=== PATIENT | female | born 1995 | race Two or more races ===

== ENCOUNTER 2016-11-13 12:44 | Emergency (ER) | payer BC ==
[2016-11-13] MEDS ORDERED: Levalbuterol 1.25MG/0.5ML NEB INH ONE (17:00)
[2016-11-13 17:51] LABS: Hematocrit 39 % (35-47); Hemoglobin 13.5 g/dl (12.0-16.0); Mean Corpuscular HGB Conc 34 g/dl (31-36); Mean Corpuscular Hemoglobin 31 pg (27-31); Mean Corpuscular Volume 91 fL (80-97); Mean Platelet Volume 6 um3 (7.4-10.4); Red Blood Count 4.32 10^6/ul (4.0-5.4); Red Cell Distribution Width 12 % (10.5-15); White Blood Count 3.5 10^3/ul (3.5-10.8)
--- NOTE | 2016-11-13 17:51 | ED ---
HPI Cardiac - HPI Summary HPI Summary: Pt here w/ URI sx x 1 week (last Tuesday). Started as nasal congestion, rhinorrhea, otalgia for a few days. These sx have resolved but she since developed cough w/ sensation of shortness of breath - feels like she can't get a full deep breath and when she tries, she starts coughing. Went to [place] on Tuesday when she just had URI sx (no cough) - dx'd w/ viral URI and d/c'd w/ comfort care. Developed cough, pulm sx as previously mentioned and fever - 103F at highest - a few days later so went to [place] again - CXR showed Rt middle lobe infiltrate so she was started on zithromax (has had 2 days of treatment thus far - no anbx yet today). Pt reports no further fever after starting zithromax but has been having ongoing coughing. She has asthma and uses albuterol once a month which quickly controls sx. Takes anti-histamine throughout the month as well. Eczema. She's here today for concerns of blood speckled sputum last night which was worse this morning. No judi bloody clots w / coughing. No h/o trauma, hormone therapy, smoking, travel, clotting, cancer. She had a positive [place] test upon entrance eval to [place] w/ neg CXR - this was most likely + 2ndry to being vaccinated as she was a resident of [place]. Was completed obligatory isoniazid tx and no issues since. Had an albuterol neb tx earlier today which helped. - History of Current Complaint Hx Obtained From: Patient, Family/Well Puller Head - mom Pain Intensity: 2 <Leatha Garcia - Last Filed: 11/13/16 17:35> <Shannon Lechuga - Last Filed: 11/14/16 03:46> - History of Current Complaint Chief Complaint: EDGeneral Stated Complaint: WORSENING PNEUMO, WITH HEMOPTYSIS Time Seen by Provider: 11/13/16 16:28 - Allergy/Home Medications Allergies/Adverse Reactions: Allergies Allergy/AdvReac Type Severity Reaction Status Date / Time No Known Allergies Allergy Verified 11/13/16 12:55 PMH/Surg Hx/FS Hx/Imm Hx Previously Healthy: Yes Endocrine/Hematology History: Denies: Hx Anticoagulant Therapy, Hx Blood Disorders, Hx Unexplained Bleeding , Hx Coagulopothy Respiratory History: Reports: Hx Asthma, Hx Seasonal Allergies, Other Respiratory Problems/Disorders - eczema Infectious Disease History: No Infectious Disease History: Denies: Hx Tuberculosis - + PPD d/t immunization in [place] - tx w/ Isoniazid completed, Traveled Outside the [place] in Last 30 Days - Family History Known Family History: Positive: None - Social History Occupation: Student Alcohol Use: None Hx Substance Use: No Substance Use Type: Reports: None Hx Tobacco Use: No Smoking Status (MU): Never Smoked Tobacco <Leatha Garcia - Last Filed: 11/13/16 17:35> Review of Systems Constitutional: Other - see HPI Eyes: Negative Negative: Drainage, Erythema ENT: Other - see HPI Cardiovascular: Negative Negative: Palpitations, Chest Pain Respiratory: Other - see HPI Gastrointestinal: Negative Negative: Abdominal Pain, Vomiting, Diarrhea, Nausea Positive: no symptoms reported Musculoskeletal: Negative Skin: Negative Neurological: Negative Psychological: Normal All Other Systems Reviewed And Are Negative: Yes <Leatha Garcia - Last Filed: 11/13/16 17:35> Physical Exam Triage Information Reviewed: Yes Vital Signs On Initial Exam: Initial Vitals Temp Pulse Resp BP Pulse Ox 98.2 F 67 20 104/67 98 11/13/16 12:50 11/13/16 12:50 11/13/16 12:50 11/13/16 12:50 11/13/16 12:50 Vital Signs Reviewed: Yes Appearance: Positive: Well-Nourished - pt presents w/ soft voice and wearing mask - when she tries to exert her voice, she has coughing at times; speaking in full sentences; mom is present w/ her and also speaks w/ soft voice Skin: Positive: Warm, Dry - dry flaking erythematous skin over superior palpebrae B/L Head/Face: Positive: Normal Head/Face Inspection - Sinuses NTTP Eyes: Positive: EOMI, Conjunctiva Clear. Negative: Conjunctiva Inflammed, Discharge ENT: Positive: Hearing grossly normal, Pharyngeal erythema - cobblestoning, Nasal congestion - boggy turbinates, TMs normal. Negative: Nasal drainage, Tonsillar swelling, Tonsillar exudate, Trismus, Muffled/hoarse voice Neck: Positive: Supple, Nontender, No Lymphadenopathy Respiratory/Lung Sounds: Positive: Clear to Auscultation, Breath Sounds Present , Other - pt starts coughing if breath is too deep - dry. Negative: Rales, Rhonchi, Stridor, Tracheal Deviation, Wheezes, Unable to speak in full sentences , Fatigue Cardiovascular: Positive: Normal, RRR, S1, S2. Negative: Murmur, Rub, Leg Edema Left, Leg Edema Right - (-) Khadijah's sign B/L Abdomen Description: Positive: Nontender, No Organomegaly, Guarding - reports she's ticklish - no pain Bowel Sounds: Positive: Present Musculoskeletal: Positive: Normal, Strength/ROM Intact Neurological: Positive: Normal, Sensory/Motor Intact, Alert, Oriented to Person Place, Time, CN Intact II-III Psychiatric: Positive: Normal - [place] Coma Scale Coma Scale Total: 15 <Leatha Garcia - Last Filed: 11/13/16 17:35> Vital Signs On Initial Exam: Initial Vitals Temp Pulse Resp BP Pulse Ox 98.2 F 67 20 104/67 98 11/13/16 12:50 11/13/16 12:50 11/13/16 12:50 11/13/16 12:50 11/13/16 12:50 <Shannon Lechuga - Last Filed: 11/14/16 03:46> Diagnostics - Vital Signs Vital Signs Temp Pulse Resp BP Pulse Ox 11/13/16 14:09 98.2 F 60 18 102/60 97 11/13/16 12:50 98.2 F 67 20 104/67 98 <Leatha Garcia - Last Filed: 11/13/16 17:35> - Vital Signs Vital Signs Temp Pulse Resp BP Pulse Ox 11/13/16 20:23 98.1 F 96 16 89/59 94 11/13/16 17:37 76 16 99 11/13/16 14:09 98.2 F 60 18 102/60 97 11/13/16 12:50 98.2 F 67 20 104/67 98 - Laboratory Lab Results: Lab Results 11/13/16 11/13/16 11/13/16 Range/Units 17:40 17:40 17:40 WBC 3.5 (3.5-10.8) 10^3/ul RBC 4.32 (4.0-5.4) 10^6/ul Hgb 13.5 (12.0-16.0) g/dl Hct 39 (35-47) % MCV 91 (80-97) fL MCH 31 (27-31) pg MCHC 34 (31-36) g/dl RDW 12 (10.5-15) % Plt Count 237 (150-450) 10^3/ul MPV 6 L (7.4-10.4) um3 Neut % (Auto) 33.4 L (38-83) % Lymph % (Auto) 59.1 H (25-47) % [place] % (Auto) 5.5 (1-9) % Eos % (Auto) 1.5 (0-6) % Baso % (Auto) 0.5 (0-2) % Absolute Neuts (auto) 1.2 L (1.5-7.7) 10^3/ul Absolute Lymphs (auto) 2.1 (1.0-4.8) 10^3/ul Absolute Monos (auto) 0.2 (0-0.8) 10^3/ul Absolute Eos (auto) 0.1 (0-0.6) 10^3/ul Absolute Basos (auto) 0 (0-0.2) 10^3/ul Absolute Nucleated RBC 0 10^3/ul Nucleated RBC % 0 INR (Anticoag Therapy) 0.99 (0.89-1.11) APTT 34.2 (26.0-36.3) seconds D-Dimer, Quantitative 271 H (Less Than 230) ng/mL Sodium 136 (133-145) mmol/L Potassium 3.4 L (3.5-5.0) mmol/L Chloride 100 L (101-111) mmol/L Carbon Dioxide 27 (22-32) mmol/L Anion Gap 9 (2-11) mmol/L BUN 9 (6-24) mg/dL Creatinine 0.64 (0.51-0.95) mg/dL Est GFR ( Amer) 150.6 (>60) Est GFR (Non-Af Amer) 117.1 (>60) BUN/Creatinine Ratio 14.1 (8-20) Glucose 127 H (70-100) mg/dL Calcium 9.5 (8.6-10.3) mg/dL Total Bilirubin 0.50 (0.2-1.0) mg/dL AST 26 (13-39) U/L ALT 14 (7-52) U/L Alkaline Phosphatase 43 (34-104) U/L Total Protein 8.0 (6.4-8.9) g/dL Albumin 4.4 (3.2-5.2) g/dL Globulin 3.6 (2-4) g/dL Albumin/Globulin Ratio 1.2 (1-3) Influenza A (Rapid) (Negative) Influenza B (Rapid) (Negative) 11/13/16 Range/Units 17:50 WBC (3.5-10.8) 10^3/ul RBC (4.0-5.4) 10^6/ul Hgb (12.0-16.0) g/dl Hct (35-47) % MCV (80-97) fL MCH (27-31) pg MCHC (31-36) g/dl RDW (10.5-15) % Plt Count (150-450) 10^3/ul MPV (7.4-10.4) um3 Neut % (Auto) (38-83) % Lymph % (Auto) (25-47) % [place] % (Auto) (1-9) % Eos % (Auto) (0-6) % Baso % (Auto) (0-2) % Absolute Neuts (auto) (1.5-7.7) 10^3/ul Absolute Lymphs (auto) (1.0-4.8) 10^3/ul Absolute Monos (auto) (0-0.8) 10^3/ul Absolute Eos (auto) (0-0.6) 10^3/ul Absolute Basos (auto) (0-0.2) 10^3/ul Absolute Nucleated RBC 10^3/ul Nucleated RBC % INR (Anticoag Therapy) (0.89-1.11) APTT (26.0-36.3) seconds D-Dimer, Quantitative (Less Than 230) ng/mL Sodium (133-145) mmol/L Potassium (3.5-5.0) mmol/L Chloride (101-111) mmol/L Carbon Dioxide (22-32) mmol/L Anion Gap (2-11) mmol/L BUN (6-24) mg/dL Creatinine (0.51-0.95) mg/dL Est GFR ( Amer) (>60) Est GFR (Non-Af Amer) (>60) BUN/Creatinine Ratio (8-20) Glucose (70-100) mg/dL Calcium (8.6-10.3) mg/dL Total Bilirubin (0.2-1.0) mg/dL AST (13-39) U/L ALT (7-52) U/L Alkaline Phosphatase (34-104) U/L Total Protein (6.4-8.9) g/dL Albumin (3.2-5.2) g/dL Globulin (2-4) g/dL Albumin/Globulin Ratio (1-3) Influenza A (Rapid) Negative (Negative) Influenza B (Rapid) Negative (Negative) Result Diagrams: 11/13/16 17:40 11/13/16 17:40 Lab Statement: Any lab studies that have been ordered have been reviewed, and results considered in the medical decision making process. <Shannon Lechuga - Last Filed: 11/14/16 03:46> Disposition - Course Course Of Treatment: Pt presents w/ persistent cough and perceived SOB w/ blood tinged cough. Has been taking zithromax w/ relief of fever - cough persists and no relief w/ home albuterol HFA. Had some relief w/ albuterol neb this morning. Tried another neb this evening w/ xoponex as pt reports h/o tachycardia of unknown cause (worked up by cardiology w/o pathological findings). She has .... after treatment today. [place] is closed and CXR unavailable for viewing at this time. Decided to check anti-coagulant labs plus D-dimer to giude chest imaging today. <Leatha Garcia - Last Filed: 11/13/16 17:35> - Course Course Of Treatment: Patient EKG WNL, CTA neg for cavitary lesions, PE, + for infiltrates, continue care with michelle. nebulizer and inhalers written for, <Shannon Lechuga - Last Filed: 11/14/16 03:46> - Diagnoses Provider Diagnoses: Pneumonia Discharge <Leatha Garcia - Last Filed: 11/13/16 17:35> <Shannon Lechuga - Last Filed: 11/14/16 03:46> - Discharge Plan Condition: Stable Disposition: HOME Referrals: [facility] - Renny FERNÁNDEZ [Primary Care Provider] -
[2016-11-13 18:05] LABS: Albumin 4.4 g/dL (3.2-5.2); BUN/Creatinine Ratio 14.1 (8-20); Calcium 9.5 mg/dL (8.6-10.3); EGFR African American 150.6 (>60); EGFR Non-African American 117.1 (>60); Globulin 3.6 g/dL (2-4); Potassium 3.4 mmol/L (3.5-5.0); Total Bilirubin 0.5 mg/dL (0.2-1.0)
[2016-11-13] MEDS ORDERED: Iohexol 350* (CONTRAST) 500 ML MDV IV ONE (18:21)
--- NOTE | 2016-11-13 19:03 | RAD ---
HISTORY: Cough, hemoptysis COMPARISONS: None TECHNIQUE: Multiple contiguous axial CT scans of the chest were obtained after the administration of nonionic intravenous contrast, timed to the pulmonary arterial phase of contrast enhancement.. Coronal and sagittal multiplanar reformations are also submitted for review. FINDINGS: NECK AND THYROID: The lower neck and thyroid are unremarkable. CHEST WALL: There is no lower cervical, axillary, or supraclavicular lymphadenopathy by size criteria. HEART AND PERICARDIUM: The heart is unremarkable. AORTA AND PULMONARY VASCULATURE: There is no pulmonary arterial filling defect to suggest pulmonary embolism. There is no linear filling defect within the aorta to suggest aortic dissection. MEDIASTINUM: There is no mediastinal lymphadenopathy by size criteria. LOPEZ: There is a 0.8 cm short axis right hilar lymph node. There is no hilar lymphadenopathy by size criteria. AIRWAY AND ESOPHAGUS: The airway is unremarkable, without endobronchial filling defect. The esophagus is grossly normal. LUNG PARENCHYMA: There is patchy ground less opacification of the right lung base PLEURA: No pleural abnormalities are noted. UPPER ABDOMEN: The upper abdomen is unremarkable. BONES AND SOFT TISSUES: No bone or soft tissue abnormalities are noted. OTHER: None. IMPRESSION: PATCHY AIRSPACE DISEASE OF THE RIGHT LUNG BASE. NO PULMONARY ARTERIAL FILLING DEFECT TO SUGGEST PULMONARY EMBOLISM
[2016-11-13 20:24] VITALS: BP 89/59
== END 2016-11-13 20:23 | disposition home or self-care (01) ==
LOC: ED 12:44
DX: J18.9 Pneumonia, unspecified organism (principal); J45.909 Unspecified asthma, uncomplicated
CPT/HCPCS: 36415; 71275; 80053; 85025; 85379; 85610; 85730; 87502; 93005; 94640; 96374; 99282; A9270-GY; Q9967